=== PATIENT | male | born 1980 | race Hispanic/Latino ===

== ENCOUNTER 2021-04-20 13:45 | Emergency (ER) | payer OTHER, SELFPAY ==
--- NOTE | 2021-04-20 14:17 | ED.GENADULT ---
HPI - General Adult General Chief complaint: Abdominal Pain Stated complaint: groin pain Time Seen by Provider: 04/20/21 14:17 Source: patient Mode of arrival: ambulatory Limitations: no limitations History of Present Illness HPI narrative: 41-year-old male patient presents to the [facility] with complaints of left groin pain for several months that got worse about 20 days ago. Patient states he was lifting something at work and felt a pop to the left groin. Since then has been having pain. Patient states he has been taking [id number] medication for pain. Patient states he did have a hernia that required surgery on his right side in [place] several years ago. Patient denies any pain with urination or blood to his urine. Related Data Home Medications Medication Instructions Recorded Confirmed No Home Medications 04/20/21 04/20/21 Allergies Allergy/AdvReac Type Severity Reaction Status Date / Time No Known Allergies Allergy Verified 04/20/21 14:51 Review of Systems Review of Systems: CONSTITUTIONAL: Denies fever, chills, or sweats. EYES: Denies visual changes, redness, or discharge. ENT: Denies rhinorrhea, congestion, sore throat, or otalgia. CARDIOVASCULAR: Denies chest pain, palpitations, or edema. RESPIRATORY: Denies cough or dyspnea. GASTROINTESTINAL: Positive left lower groin pain, denies abdominal pain, nausea, vomiting, or diarrhea. GENITOURINARY: Denies dysuria or hematuria. SKIN: Denies rash or itching. MUSCULOSKELETAL: Denies back pain, joint pain, or myalgia. NEUROLOGIC: Denies headache, numbness, or weakness. PSYCHIATRIC: Denies anxiety or depression. [facility] Surgical History Surgical History (Updated 04/20/21 @ 14:56 by LATASHA Perez) History of hernia surgery Right side Comments At the time of my signature I agree with nursing past medical history, surgical, social, and family history. There is no relevant family history pertinent to the presenting complaint. Exam Narrative: GENERAL: Well-appearing, well-nourished, and in no acute distress. HEAD: Normocephalic, atraumatic. EYES: PERRLA and EOMI. ENT: Nares clear, no rhinorrhea or epistaxis. Mucous membranes moist. NECK: Supple. No lymphadenopathy CHEST: Clear to auscultation. No respiratory distress. HEART: Regular rate and rhythm. No murmur heard. Normal peripheral pulses. ABDOMEN: Soft, flat, nondistended. guarding present to left lower groin, no rebound tenderness, or rigid. No pulsatilla masses. Bowel sounds present in all four quadrants. No organomegaly. Negative Garrett?s sign. No periumbicial tenderness. No Supra public tenderness or distension. Good femoral pulses bilaterally. No hernia noted. No scars or surface trauma. Patient does have tenderness noted to left lower groin area on palpation. EXTREMITIES: Normal range of motion. No edema. SKIN: Warm, dry, no rash. NEURO: No focal deficits. Alert and oriented x3. Course Course Level of Care: Express Care Visit Vital Signs Vital signs: Vital Signs Temperature 36.6 C 04/20/21 14:27 Pulse Rate 66 04/20/21 14:27 Respiratory Rate 18 04/20/21 14:27 Blood Pressure 142/82 H 04/20/21 14:27 Pulse Oximetry 100 04/20/21 14:27 Temperature 36.6 C 04/20/21 14:27 Pulse Rate 66 04/20/21 14:27 Respiratory Rate 18 04/20/21 14:27 Blood Pressure 142/82 H 04/20/21 14:27 Pulse Oximetry 100 04/20/21 14:27 Vital signs reviewed The patient has been informed that they may have pre-hypertension or Hypertension based on a BP reading in the department. I recommend that the patient call the primary care provider listed on their discharge instructions or a physician of their choice this week to arrange follow up for further evaluation of possible pre-hypertension or Hypertension Medical Decision Making Differential Diagnosis Differential Diagnosis: Differential diagnosis: Appendicitis, gallbladder disease, ovarian torsion, pancreatitis, lower lobe pneumonia,A
[2021-04-20 14:27] VITALS: BP 142/82; PULSE 66; RESP 18; TEMP 36.6; O2SAT 100
== END 2021-04-20 14:54 | disposition short-term general hospital (02) ==
PROVIDERS: Emergency Provider Nurse Practitioner Family
DX: R10.32 Left lower quadrant pain (principal)
CPT/HCPCS: 99212; G0463

== ENCOUNTER 2021-04-20 15:19 | Emergency (ER) | payer OTHER, SELFPAY ==
[2021-04-20 15:32] VITALS: BP 135/92; PULSE 70; RESP 18; TEMP 36.7; O2SAT 100
[2021-04-20 15:34] VITALS: BP 149/106; PULSE 78; RESP 16; TEMP 36.6; O2SAT 99
--- NOTE | 2021-04-20 16:27 | ED.ABDPAIN ---
HPI - Abdominal Pain General Chief Complaint: Abdominal Pain Stated Complaint: Hernia Time Seen by Provider: 04/20/21 15:34 Source: patient and certified court/medical interpreter History of Present Illness HPI narrative: Patient referred for evaluation of abdominal pain. Patient reports a history of hernia and he feels his symptoms feel similar. Approximately 20 days ago was lifting something heavy and he felt something tear and since then he has felt a bulge that gets worse when he attempts to lift things when he eating or attempting to sit up. Pain is sharp, does not radiate is alleviated with rest denies any nausea vomiting or diarrhea. Related Data Home Medications Medication Instructions Recorded Confirmed No Home Medications 04/20/21 04/20/21 Allergies Allergy/AdvReac Type Severity Reaction Status Date / Time No Known Allergies Allergy Verified 04/20/21 15:39 Review of Systems Review of Systems: CONSTITUTIONAL: Denies fever, chills, or sweats. EYES: Denies visual changes, redness, or discharge. ENT: Denies rhinorrhea, congestion, sore throat, or otalgia. CARDIOVASCULAR: Denies chest pain, palpitations, or edema. RESPIRATORY: Denies cough or dyspnea. GASTROINTESTINAL: Denies abdominal pain, nausea, vomiting, or diarrhea. GENITOURINARY: Denies dysuria or hematuria. SKIN: Denies rash or itching. MUSCULOSKELETAL: Denies back pain, joint pain, or myalgia. NEUROLOGIC: Denies headache, numbness, dizziness, or weakness. PSYCHIATRIC: Denies anxiety or depression. [facility] Surgical History Surgical History History of hernia surgery Right side Exam Narrative: GENERAL: Well-appearing, well-nourished, and in no acute distress. HEAD: Normocephalic, atraumatic. EYES: PERRLA and EOMI. ENT: Nares clear, no rhinorrhea or epistaxis. Mucous membranes moist. NECK: Supple. No masses. No JVD ABDOMEN: Soft, nontender, nondistended, normal active bowel sounds. Soft reducible mass in the left femoral area no erythema EXTREMITIES: Normal range of motion. No edema. SKIN: Warm, dry, no rash. NEURO: No focal deficits. Alert and oriented x3. PSYCH: Normal mood and affect. Course Vital Signs Vital signs: Vital Signs Temperature 36.7 C 02/05/22 15:32 Pulse Rate 70 04/20/21 15:32 Respiratory Rate 18 04/20/21 15:32 Blood Pressure 135/92 H 04/20/21 15:32 Pulse Oximetry 100 04/20/21 15:32 Temperature 36.6 C 04/20/21 15:34 Pulse Rate 87 04/20/21 17:12 Respiratory Rate 16 04/20/21 17:12 Blood Pressure 142/86 H 04/20/21 17:12 Pulse Oximetry 100 04/20/21 17:12 MDM - Abdominal Pain MDM Narrative Medical decision making narrative: H&P as above, vss, pt looks clinically well, exam with a reducible hernia on the left femoral area, labs/img considered, symptomatic relief available as needed, on reevaluation pt continues to looks clinically well. Suspect hernia, dns incarcerated or strangulate it hernia, do not suspect perforation or abscess. plan to tx/monitor as op w/ surgical f/u findings/plan discussed with pt, pt agree/comfortable with plan, return precautions given. Hernia precautions given Discharge Plan Discharge Clinical Impression: Hernia Patient Disposition: Home, Self-Care Condition: Improved Instructions: Antibiotic Form, Inguinal Hernia (ED) Additional Instructions: Please return if your symptoms worsen or fail to improve. If you develop a fever, can not eat/drink anything or if you have any other concerns. Patient Language: Faroese Prescriptions: No Action No Home Medications RF: 0 Follow-up/Referrals: Damien Vaughn MD [Physician] - (hernia on L luxembourgish speak only. Patients phoen number is [phone]) PHYSICIAN,PETROLEUM GEOLOGIST [Primary Care Provider] - Time of Disposition: 16:35
[2021-04-20 17:12] VITALS: BP 142/86; PULSE 87; RESP 16; O2SAT 100
== END 2021-04-20 17:13 | disposition home or self-care (01) ==
PROVIDERS: Emergency Provider Emergency Medicine
DX: K46.9 Unspecified abdominal hernia without obstruction or gangrene (principal)
CPT/HCPCS: 99281

== ENCOUNTER 2021-05-27 00:32 | Day surgery (SDC) | payer OTHER, SELFPAY ==
[2021-05-17 10:53] VITALS: BP 148/78; PULSE 65; RESP 16; TEMP 36.8; O2SAT 98; BMI 34.1
--- NOTE | 2021-05-17 11:20 | PC.NURSE ---
Report to the Outpatient Waiting Room, entrance under the green pavilion located off [facility], at time ___6:00AM____ on date __05/27/21 . OR Time: ___7:30AM . - You and your visitor will be asked a series of questions to screen for COVID 19 for your protection. - A mask is required within the hospital. Preoperative COVID Testing Requirements: No COVID Test needed if: (proof is required; if not received patient will have Rapid Test prior to entry) - Patient has received COVID Vaccine at least 14 days prior to procedure date or - Patient has positive COVID test result within last 90 days of surgery date. COVID Test needed if above criteria is not met If not COVID vaccinated a COVID test must be conducted within 72 hours of surgery and patient is asked to isolate self from time of testing until procedure. You will go to the [facility] for your COVID testing. The [facility] site is located at the corner of [address] [facility]. You will only be called if COVID results are positive and your surgeon may reschedule your elective surgery date. Patients may have clear liquids (water, carbonated beverages, clear teas, apple juice) until 3 hours prior to surgery with a maximum of 20 ounces. - No food from midnight until time of surgery - Infants may have breast milk until 4 hours before surgery, formula 6 hours prior to surgery. - Children will be allowed to drink immediately following surgery. If applicable, please bring a bottle or sippy cup to assist with drinking. Juice, water, soda, and popsicles are readily available. For infants on formula, please bring formula the day of surgery. Pacifiers are allowed. Take the following medications with a SIP of water the morning of surgery: ____NONE Medications to discontinue per physician NONE Date to take last dose Please no make-up, nail frisian, hairspray, perfume, deodorant, or body powder the day of surgery. No jewelry (including any body piercings) or valuables the day of surgery, leave them at home. Please take a shower or bath the night before, or the morning of, surgery with an antibacterial soap. Wear comfortable, loose fitting clothing. Children are encouraged to wear pajamas. - Jewelry must be removed prior to entering the operating room. Rings and piercings that are not removed may be cut off. - The hospital will not accept responsibility for valuables. - Please leave all valuables, including medications, at home the day of surgery. If you are going home after surgery, a licensed piledriver carpenter must drive you home. - NO public transportation without another adult. - We recommend that an adult stay with you for 24 hours following discharge. - We also recommend that you do not drive, make important decision, drink alcoholic beverages, or take any drugs that were not prescribed by your health care provider for at least 24 hours after your discharge time. For Pediatric surgeries, we recommend two adults accompany the child home (only one inside the building at this time). One visitor will be allowed to accompany the patient into the hospital. Patients visitor will be instructed to remain with patient at all times or leave the building. We will allow the visitor to come back to the postoperative area when patient is ready. Follow any additional instructions given to you from your surgeon. Telephone instructions given to __PATIENT WITH TRANSLATOR and asked if any additional questions and then verbalized understanding. Patient advised to call surgeon office or pre surgery nurse liaison [phone] if any additional questions.
--- NOTE | 2021-05-24 10:15 | WPDANESEPPF ---
Anes - Initial Pre Proc Eval Procedure: Operation Date: 05/27/21 07:30 Proposed Procedures p Open Left Inguinal Hernia Repair with Mesh - Damien Vaughn MD Date/Time: 05/24/21 10:15 Surgeon: Damien Vaughn MD Pre Op Diagnosis: left inguinal hernia Patient Data Age: 41 Gender: M Height: 1.73 m Weight: 101.9 kg Last Vital Signs Temp 36.8 C 05/17/21 10:53 Pulse 65 05/17/21 10:53 Resp 16 05/17/21 10:53 BP 148/78 H 05/17/21 10:53 Pulse Ox 98 05/17/21 10:53 Allergies Allergy/AdvReac Type Severity Reaction Status Date / Time No Known Allergies Allergy Verified 05/17/21 11:34 Home Medications Medication Instructions Recorded Confirmed Type ibuprofen [Advil] 600 mg PO Q6H PRN 05/17/21 05/17/21 History Patient hx anesthesia problems: none Family hx anesthesia problems: none Results Review: All pre-operative results and documents have been reviewed as part of the pre-operative evaluation. [facility], LAT[facility] Past Medical History Medical History GERD (gastroesophageal reflux disease) Surgical History Surgical History History of hernia surgery Right inguinal hernia repair with mesh Social History Social History (Updated 04/24/21 @ 09:35 by Tamika Aiken) Smoking status: Never smoker Alcohol intake: never Substance use: never Living arrangements: with family Additional living arrangements comments: AND CHILDREN Additional occupation/education comments: [employer] Spiritual care concerns: No Anes - Eval Final PreProcedure Day of Procedure 05/24/21 10:15 Patient weight: obese Heart: regular rate and rhythm Lungs: clear to auscultation and normal air movement Airway: Mallampati scale class II Neurological: alert and oriented Last oral intake: >/= 8 hours ASA classification: II Emergent: no Anesthetic plan: proceed Anesthesia type and monitoring: general ETT and standard monitoring Results Review: All pre-operative results and documents have been reviewed as part of the pre-operative evaluation. Informed Consent: The patient's anesthetic plan and its attendant risks and benefits were discussed with the patient/family/POA. Questions were solicited and answers provided to the satisfaction of the patient/family/POA.
--- NOTE | 2021-05-26 16:17 | PM.HPGS ---
History of Present Illness History of Present Illness Consent: Risks, benefits, and alternatives of an open Left inguinal hernia repair have been discussed and questions answered. Patient agrees to proceed with procedure. Chief complaint: left inguinal hernia Narrative: Ozzy Starr is a 41 year old male who was recently seen in the office after a visit to the [facility] ED for complaints of left groin pain. Patient reports that he was working and while he was walking carrying some heavy rocks he slipped a little and felt a pop in the left groin area. Then he felt a bulge that appeared in the left groin and it was associated with pain. He reports the pain associated with the bulge became worse over time and that is why is presented to the ED. He reports he has been able to reduce the hernia, otherwise when the hernia is protruding out the pain is worse. He reports since the incident occurred he has been going to work and doing his regular duties. He reports when he has pain it is usually in the afternoon. He has taken Advil a few times to help with pain control. He denies any problems urinating or with BMs since he first noticed the hernia. Patient reports that he did have a right inguinal hernia repair in [place] several years ago. He believes that they used mesh during the repair. Review of Systems Review of Systems: Const Reports no additional complaints, Denies frequent falls, Denies headache(s) and Reports other (no recent weight change, no fever) Eyes Denies blurry vision, Denies itchy eyes, Denies photophobia and Denies spots in vision ENT Reports Normal hearing present, Denies headache(s), Denies hoarseness, Denies lip swelling and Denies sore throat Card Denies chest pain at rest, Denies irregular heart rhythm and Denies dyspnea Resp Denies chest congestion, Denies cough and Denies dyspnea GI Denies melena and Denies coffee ground emesis. History of a previous RIH repair 4 - 5 years ago Musc Denies abnormal gait and Denies back pain Skin/Breast Denies new lesions, Denies rash and Denies wounds Neuro Reports Normal hearing present, Denies abnormal gait, Denies confusion, Denies frequent falls, Denies headache(s), Denies convulsions and Denies seizure-like activity Psych Denies confusion and Denies depression Endo Denies cold intolerance and Denies heat intolerance Jarred/Lymph Denies easy bleeding, Denies easy bruising and Denies lymphadenopathy Aller/Immun Denies itchy eyes and Denies lip swelling PMFSH Past Medical History Medical History GERD (gastroesophageal reflux disease) Surgical History Surgical History History of hernia surgery Right inguinal hernia repair with mesh Social History Social History (Updated 04/24/21 @ 09:35 by Tamika Aiken) Smoking status: Never smoker Alcohol intake: never Substance use: never Living arrangements: with family Additional living arrangements comments: AND CHILDREN Additional occupation/education comments: [employer] Spiritual care concerns: No Meds Home Medications and Allergies Home Medications Medication Instructions Recorded Confirmed Type ibuprofen [Advil] 600 mg PO Q6H PRN 05/17/21 05/27/21 History Allergies Allergy/AdvReac Type Severity Reaction Status Date / Time No Known Allergies Allergy Verified 05/27/21 08:01 Exam Narrative: Exam Const Constitutional General: healthy appearing; No poor hygiene Nutritional Appearance: well nourished Orientation/consciousness: oriented to person, oriented to place and oriented to time HENAZ Head: normal to inspection Ears: hearing grossly normal bilaterally General nose exam: Normal external nose present Mouth: Normal oral and palatal mucosa present, lip normal, tongue normal and moist mucous membranes Eyes Conjunctivae: Yes conjunctivae normal Pupils: Yes
[2021-05-27] VITALS (12 sets, daily range): BP systolic 113–139; BP diastolic 66–90; PULSE 72–97; RESP 15–22; TEMP 36.4–36.5; O2SAT 96–100
[2021-05-27] MEDS: KETOROLAC 15 MG/ML VIAL (*BKC) IV PUSH (06:45)
[2021-05-27] MEDS: LACTATED RINGERS 1,000 ML 30 ML IV CONT ×2 (06:45→11:18)
--- NOTE | 2021-05-27 07:57 | SUR.PREOP ---
OPI TRANSLATORS UTILIZED THROUGHOUT PREOP TIME TO WHILE PREPPING PT FOR SURGERY TO SPEAK W/ PT AND SPOUSE. THAD BELTRAN RN, DR. PENALOZA AND DR JOSEPH SPOKE W/ PT AND SPOUSE WITH USE OF OPI TRANSLATORS; IMELDA #[id number]. MARIA D #[id number].
[2021-05-27] MEDS: ACETAMINOPHEN 500 MG TABLET 1000 MG PO (08:07)
--- NOTE | 2021-05-27 08:18 | WPDHPUPDATE1 ---
History and Physical Update Update Date/Time: 05/27/21 08:18 History and Physical has been reviewed, including an updated exam of the patient. There are NO changes in the patient's condition. Risks, benefits, and alternatives have been discussed and questions answered. Patient agrees to proceed with procedure.
[2021-05-27] MEDS: BUPIVACAINE/EPINEPHRINE 0.25% 10 ML VIAL 20 ML INFILTRATE (09:09)
--- NOTE | 2021-05-27 11:32 | W.PM.PROC2 ---
Procedure Note - Detailed Date of Procedure 05/27/21 Pre-op Diagnosis left inguinal hernia Post-op Diagnosis Other (Left indirect sliding inguinal hernia) Procedure Performed Open inguinal hernia repair with mesh Surgeon Damien Vaughn MD Magnetic Tester RN, OR 1st assist Anesthesia General Indications Patient has been having bulging and pain in the left groin since slipping while carrying a heavy load at work. (See H&P for details). Findings The patient had an area of sigmoid colon adhesed to the upper portion of his indirect inguinal hernia sac. There was a fairly large indirect inguinal hernia sac. Description of Procedure The patient was placed in the supine position on the operating room table. After induction of adequate general endotracheal by [facility] Anesthesia staff, we carefully prepped the entire lower abdomen with chlorhexidine and scrotum and penis with Betadine. One sterile towel was placed underneath the scrotum. Four towels were placed around the left lower quadrant. Following this, a time-out was performed with the surgical team and the patient's surgical procedure and site was confirmed. We then carefully outlined a curvilinear incision in the left groin area and a curvilinear incision was made after introducing a mixture of local anesthetic, using 0.25% Marcaine with epinephrine and 1% Xylocaine plain as both an ilioinguinal nerve block and at the incision site with a 25 gauge needle. Following this, I carefully made the incision, and carried it down through the subcutaneous tissue. Dipika's fascia was incised and then we identified the external oblique aponeurosis and the external ring. Following this, the same mixture of local anesthetic was infiltrated underneath the external oblique aponeurosis and this was split in the direction of it's fibers with a #15 blade initially and then using Metzenbaum scissors. I then opened the external oblique through the external ring and incised this somewhat posteriorly and superiorly exposing the ilioinguinal nerve. This nerve was carefully preserved laterally and then I carefully and meticulously dissected out the cord structures at the level of the pubic tubercle. I then surrounded these structures at the level of pubic tubercle and placed a Seun drain around them. I then carefully dissected the hernia sac up and off of the cord tissues, and brought it up and out of the incision. We carefully dissected the layers and cremasteric tissues off the hernia sac and then eventually opened the hernia sac. Holding this up with 4 hemostats, I carefully dissected it off the cord structures, being careful to avoid injury to the Pampiniform plexus veins, the spermatic artery and the vas. Upon opening the sac was also noted that there was the anti mesenteric wall of the sigmoid colon attached to the inner wall of the hernia sac with some adhesions. These were carefully taken down with Bovie cautery and scissors within the sac and was able to be reduced back into the abdomen deep to the internal ring. I then placed the 2-0 silk pursestring suture at the level of the internal ring. Once the hernia sac was carefully dissected back to the level of the internal ring, a suture ligation with a pursestring suture of 2-0 silk was used to close the neck of the indirect hernia sac and tied tight, and then distally the hernia sac was amputated with Bovie cautery. It was then passed off the field for pathologic evaluation. There was some of the distal portion of the sac that extended along the cord structures and I did not dissect out and left it wide open within the inguinal canal. Following this, we took care to recreate an appropriate inguinal canal. This was done by carefully dissecting from the internal ring down to the pubic bone, and dissecting away any cremasteric tissue. A running suture of 0 Prolene was placed in the pubic tubercle and run up to the internal ring, approxima
--- NOTE | 2021-05-27 11:58 | SUR.PHASEI ---
use of metal fitter,elio hein,[id number]. awakening from anesthesia.
[2021-05-27] MEDS: oxyCODONE HCL (*CRX) 5 MG TAB IR PO (13:58)
== END 2021-05-27 15:05 | disposition home or self-care (01) ==
PROVIDERS: Visit Provider Surgery
PROC: (CPT 49525; principal; 2021-05-27 08:30)
DX: K40.90 Unilateral inguinal hernia, without obstruction or gangrene, not specified as recurrent (principal); K21.9 Gastro-esophageal reflux disease without esophagitis; E66.9 Obesity, unspecified; Z68.34 Body mass index [BMI] 34.0-34.9, adult
CPT/HCPCS: 49525; 88302; A9270; C1781; J1100; J1885; J2250; J2405; J2704; J3010; J7120